=== PATIENT | male | born 1960 | race Caucasian/White ===

== ENCOUNTER 2021-10-13 19:29 | Emergency (ER) | payer MEDICAID, SELFPAY ==
[2021-10-13 19:30] VITALS: BP 114/78; PULSE 71; RESP 16; O2SAT 94
[2021-10-13 19:32] VITALS: BP 121/85; PULSE 82; RESP 25; TEMP 36.8; O2SAT 94; BMI 24.5
--- NOTE | 2021-10-13 19:45 | CT_ITS ---
STUDY: CT BRAIN WITHOUT CONTRAST REASON FOR EXAM: Male, 61 years old. Technologist Notes Other, FOUND WALKING DOWN MIDDLE OF THE ROAD,ETOH AMS TECHNIQUE: Transaxial CT imaging of the brain was performed without administration of intravenous contrast material. Individualized dose optimization techniques were used for this CT. COMPARISON: None FINDINGS: Normal calvarium. Normal soft tissues. Normal size ventricles and extra-axial spaces for the patient''s age. Normal white matter tracts of the cerebral hemispheres. Normal basal ganglia and thalami. Normal brainstem. Normal cerebellum. There is no intracranial hemorrhage. There are no findings of an acute ischemic infarction. Normal visualized paranasal sinuses. ASPECTS 10 CT/Brain/Head without Contrast IMPRESSION: There are no acute intracranial findings. Electronically Signed: Ruben Puga MD at 20:46 EST , Service support ,
--- NOTE | 2021-10-13 19:45 | EKG12_ITS ---
Test Reason : DYSRHYTHMIA Blood Pressure : / mmHG Vent. Rate : 074 BPM Atrial Rate : 074 BPM P-R Int : 156 ms QRS Dur : 090 ms QT Int : 420 ms P-R-T Axes : 074 067 054 degrees QTc Int : 466 ms Normal sinus rhythm Normal ECG Confirmed by BRIE WALKER, CLEM ([id number]), slot editor KATIE ANDRES ([id number]) on 10/19/2021 12:05:05 PM Referred By: PL Confirmed By:CLEM BAIRD MD
[2021-10-13 20:24] LABS: Absolute Lymphocyte Count 1.34 X10^3/uL (0.83-4.51); Absolute Neutrophil Count 5.8 X10^3/uL (2.0-7.7); Basophil# 0.03 X10^3/uL; Basophil% 0.4 % (0-1); Eosinophil# 0.05 X10^3/uL; Eosinophils% 0.6 % (0-5); Hemoglobin 14.9 g/dL (13.0-16.5); Lymphocyte # 1.34 X10^3/ul (0.83-4.51); Lymphocyte % 17.2 % (19-41); Mean Corp Hgb Conc 33.1 g/dL (32-36); Mean Corpuscular Hgb 29.8 pg (27.0-32.0); Mean Platelet Vol. 9.1 fl (6.2-12.0); Monocyte# 0.53 X10^3/uL; Monocyte% 6.8 % (0-10); NRBC Flagged by Analyzer 0 % (0-5); Neutrophil # 5.83 X10^3/uL (2.7-7.7); Neutrophil % 74.9 % (47-70); Platelet Count 209 K/mm3 (150-450); RBC Distribution Width CV 12.4 % (11.6-14.6); RBC Distribution Width SD 41.1 fl (35.1-43.9); White Blood Count 7.8 K/mm3 (4.4-11.0)
--- NOTE | 2021-10-13 20:28 | RAD_ITS ---
STUDY: X-RAY CHEST REASON FOR EXAM: Male, 61 years old. Technologist Notes FOUND WALKING DOWN THE MIDDLE OF THE ROAD. ETOH. PAIN AMS TECHNIQUE: XR Chest 1 View COMPARISON: None FINDINGS: 3 mm right midlung nodule. Normal size heart. Normal mediastinum and marylou. Normal visualized pulmonary arteries. There is atherosclerotic calcification of the aortic arch with tortuosity. There are diffuse degenerative changes of the visualized thoracic spine. There is degenerative osteoarthritis of the bilateral shoulders. There is no demonstrated abnormality of the visualized soft tissue structures of the upper abdomen. RAD/Chest 1 View (Portable) IMPRESSION: There is a right midlung nodule. Correlation with prior imaging would be helpful if available. Otherwise, please obtain chest CT follow-up. Electronically Signed: Ruben Puga MD at 21:06 EST , Service support ,
[2021-10-13 20:30] VITALS: BP 110/72; PULSE 87; RESP 19; O2SAT 94
--- NOTE | 2021-10-13 20:31 | EDS_ITS ---
HPI History of Present Illness Chief Complaint: ETOH Intox Narrative Narrative: 61-year-old male from [place] apparently left without being noticed. He was found walking down the street intoxicated. The police brought him in for evaluation. When asked how much the patient drank he states a little bit. He is not able to give much more history. PFSH PFS Medical History unable to obtain Allergy/AdvReac Type Severity Reaction Status Date / Time No Known Allergies Allergy Verified 10/13/21 20:30 Social History Smoking Status: Smoker, status unknown ROS ROS ED Review of Systems ROS Unobtainable: due to mental status EXAM Physical Exam Narrative Exam Narrative: Appears intoxicated Const Vital Signs: 10/13/21 19:30 10/13/21 19:32 10/13/21 20:30 Temperature 98.3 F Temperature Source Temporal Pulse Rate 71 82 87 Respiratory Rate 16 25 H 19 H Blood Pressure 114/78 121/85 H 110/72 Blood Pressure Mean 90 97 84 Blood Pressure Source Monitor Pulse Ox 94 94 94 Oxygen Delivery Method Room Air Room Air Room Air 10/13/21 22:00 Temperature Temperature Source Pulse Rate 88 Respiratory Rate 16 Blood Pressure 112/75 Blood Pressure Mean 87 Blood Pressure Source Pulse Ox 97 Oxygen Delivery Method Room Air Positive well nourished and unkempt General Appearance ED: unkempt and NAD HEENT Reports moist mucous membranes atraumatic Eyes PERRL and EOMs intact bilaterally General Eye ED: Negative for pale conjunctiva or scleral icterus Neck supple Chest Wall inspection of chest normal Resp normal respiratory effort and clear to auscultation bilaterally Cardio regular rate and regular rhythm Back/Spine no CVA tenderness Neuro CN's II-XII intact bilaterally Sensorium / Orientation: alert Psych Appearance: unkempt Skin Lesions: no lesions Rashes: no rashes MDM MDM MDM Narrative Medical decision making narrative: Patient reportedly from [place] and was able to leave without being noticed. He appears intoxicated. he states he initially was from [place] but does not give a full story. He states that he was sent to [place] from there. He cannot tell me why. Patient was discussed with [place] who stated that he had been worsening like this for a week and they did not want to take him back. I obtained an EKG and blood work. EKG is sinus rhythm at a ventricular rate of 74 bpm without sign of ischemic change on my interpretation. CBC shows no leukocytosis and his hemoglobin Hockert are stable. Renal function electrolytes are normal. LFTs are not elevated. Urine drug screen is negative. Chest x-ray my interpretation shows no acute cardiopu lmonary process and radiologist does agree. CT brain interpreted by radiologist does not show any acute intercranial pathology. I did review the medical record it does appear that he was at [facility] before being transferred to [place]. It is noted in his medical record that he will walk out of the unlocked facilities. He does have a medical power of assistant city attorney. We will have social work see the patient and talk to his power of assistant city attorney to determine the best course of action. Impression: 1. EtOH intoxication Lab Data Attestation: I reviewed the patient's lab results. Labs: Laboratory Results - last 24 hr 10/13/21 10/13/21 10/13/21 20:15 20:15 20:15 WBC 7.8 RBC 5.00 Hgb 14.9 Hct 45.0 MCV 90.0 MCH 29.8 MCHC 33.1 RDW Std Deviation 41.1 RDW Coeff of Anirudh 12.4 Plt Count 209 MPV 9.1 Immature Gran % (Auto) 0.100 Neut % (Auto) 74.9 H Lymph % (Auto) 17.2 L [place] % (Auto) 6.8 Eos % (Auto) 0.6 Baso % (Auto) 0.4 Absolute Neuts (auto) 5.8 Absolute Lymphs (auto) 1.34 Nucleated RBC % 0 Sodium 141 Potassium 3.5 Chloride 107 Carbon Dioxide 24.0 Anion Gap 10 BUN 6 L Creatinine 0.78 Estim Creat Clear Calc 95.34 Est GFR (MDRD) Af Amer 131 Est GFR (MDRD) Non-Af 109 BUN/Creatinine Ratio 7.7 L Glucose 90 Calcium 8.4 L Total Bilirubin 0.20 Direct Bilirubin < 0.05 AST 17 ALT 19 Alkaline Phosphatase 95 Troponin I High Sens 5 Total Protein 6.7 Albumin 3.4 Globulin 3.3 Albumin/Globulin Ratio 1.0 Urine Color Urine Clarity Urine pH Ur Specific [place] Urine Protein Urine Glucose (UA) Urine Ketones Urine Occult Blood Urine Nitrite Urine Bilirubin Urine Urobilinogen Ur Leukocyte Esterase Urine RBC Urine WBC Ur Squamous Epith Cells Urine Bacteria Urine Mucus Urine Opiates Screen Urine Methadone Screen Ur Barbiturates Screen Ur Phencyclidine Scrn Ur Amphetamines Screen U Methamphetamin-MDMA U Benzodiazepines Scrn Urine Cocaine Screen U Cannabinoids Screen Ur Drug Screen Comment Ethyl Alcohol Cancelled 10/13/21 10/13/21 10/13/21 21:00 21:00 21:10 WBC RBC Hgb Hct MCV MCH MCHC RDW Std Deviation RDW Coeff of Anirudh Plt Count MPV Immature Gran % (Auto) Neut % (Auto) Lymph % (Auto) [place] % (Auto) Eos % (Auto) Baso % (Auto) Absolute Neuts (auto) Absolute Lymphs (auto) Nucleated RBC % Sodium Potassium Chloride Carbon Dioxide Anion Gap BUN Creatinine Estim Creat Clear Calc Est GFR (MDRD) Af Amer Est GFR (MDRD) Non-Af BUN/Creatinine Ratio Glucose Calcium Total Bilirubin Direct Bilirubin AST ALT Alkaline Phosphatase Troponin I High Sens Total Protein Albumin Globulin Albumin/Globulin Ratio Urine Color Straw Urine Clarity Clear Urine pH 6.0 Ur Specific [place] 1.010 Urine Protein Negative Urine Glucose (UA) Normal Urine Ketones Negative Urine Occult Blood Negative Urine Nitrite Negative Urine Bilirubin Negative Urine Urobilinogen Normal Ur Leukocyte Esterase Negative Urine RBC 0 SEEN Urine WBC 0 SEEN Ur Squamous Epith Cells 0 SEEN Urine Bacteria 0 SEEN Urine Mucus 0 SEEN Urine Opiates Screen NEGATIVE Urine Methadone Screen NEGATIVE Ur Barbiturates Screen NEGATIVE Ur Phencyclidine Scrn NEGATIVE Ur Amphetamines Screen NEGATIVE U Methamphetamin-MDMA NEGATIVE U Benzodiazepines Scrn NEGATIVE Urine Cocaine Screen NEGATIVE U Cannabinoids Screen NEGATIVE Ur Drug Screen Comment Ethyl Alcohol Cancelled 10/13/21 22:27 WBC RBC Hgb Hct MCV MCH MCHC RDW Std Deviation RDW Coeff of Anirudh Plt Count MPV Immature Gran % (Auto) Neut % (Auto) Lymph % (Auto) [place] % (Auto) Eos % (Auto) Baso % (Auto) Absolute Neuts (auto) Absolute Lymphs (auto) Nucleated RBC % Sodium Potassium Chloride Carbon Dioxide Anion Gap BUN Creatinine Estim Creat Clear Calc Est GFR (MDRD) Af Amer Est GFR (MDRD) Non-Af BUN/Creatinine Ratio Glucose Calcium Total Bilirubin Direct Bilirubin AST ALT Alkaline Phosphatase Troponin I High Sens Total Protein Albumin Globulin Albumin/Globulin Ratio Urine Color Urine Clarity Urine pH Ur Specific [place] Urine Protein Urine Glucose (UA) Urine Ketones Urine Occult Blood Urine Nitrite Urine Bilirubin Urine Urobilinogen Ur Leukocyte Esterase Urine RBC Urine WBC Ur Squamous Epith Cells Urine Bacteria Urine Mucus Urine Opiates Screen Urine Methadone Screen Ur Barbiturates Screen Ur Phencyclidine Scrn Ur Amphetamines Screen U Methamphetamin-MDMA U Benzodiazepines Scrn Urine Cocaine Screen U Cannabinoids Screen Ur Drug Screen Comment Ethyl Alcohol 157.0 Radiography Diagnostic Testing: Clinical Impression(s) from Imaging Studies Brain CT 10/13/21 19:45 IMPRESSION: There are no acute intracranial findings. Electronically Signed: Ruben Puga MD at 20:46 EST , Service support , Chest X-Ray 10/13/21 20:28 IMPRESSION: There is a right midlung nodule. Correlation with prior imaging would be helpful if available. Otherwise, please obtain chest CT follow-up. Electronically Signed: Ruben Puga MD at 21:06 EST , Service support , Discharge Plan Triage Chief Complaint: ETOH Intox ED Provider: Nathaniel Coleman Dx/Rx/DC Orders Primary Care Provider: Care Physician,No Primary
[2021-10-13 20:50] LABS: AST(SGOT) 17 U/L (15-37); Alanine Aminotransfer ALT/SGPT 19 U/L (16-61); Albumin, Serum 3.4 g/dL (3.2-5.0); Alkaline Phosphatase 95 U/L (45-117); Anion Gap 10 (5-15); BUN 6 mg/dL (7-18); BUN/Creat Ratio 7.7 RATIO (10-20); Bilirubin, Direct < 0.05 mg/dL (0.00-0.30); Calcium,Total 8.4 mg/dL (8.5-10.1); Chloride 107 mmol/L (98-107); Creatinine, Serum 0.78 mg/dL (0.70-1.30); EST Glomerular Filtration Rate 109 mL/min (>60); Est Glom Filt Rate - Afr Amer 131 mL/min (>60); Estimated Creatinine Clearance 95.34 ml/min; Globulin 3.3 g/dL (2.2-4.2); Glucose 90 mg/dL (74-106); Potassium 3.5 mmol/L (3.5-5.1); Protein, Total 6.7 g/dL (6.4-8.2); Sodium Level 141 mmol/L (136-145); Troponin-I HS 5 pg/mL (3.0-78.0)
[2021-10-13 21:07] LABS: Bacteria 0 SEEN /hpf (None Seen); Mucous, Urine 0 SEEN /hpf (<or=2+); Red Blood Cells-Urine 0 SEEN /hpf (0-5); Squamous Epithelial Cells - UA 0 SEEN /hpf (0-5); White Blood Cells 0 SEEN /hpf (0-5)
[2021-10-13 21:28] LABS: Color, Urine Straw (Yellow); Glucose, Dipstick Normal (Normal); Ketone-Dipstick Negative (Negative); Leukocyte Esterase-Dipstick Negative /ul (Negative); Nitrite-Dipstick Negative (Negative); Occult Blood-Urine Negative /ul (Negative); Protein-Dipstick Negative (Negative); Urine Bilirubin Dipstick Negative (Negative); Urine Clarity Clear (Clear); Urine Urobilinogen Normal (Normal)
[2021-10-13 21:43] LABS: Amphetamine Urine VISTA NEGATIVE (<1000 ng/mL); Barbiturate Urine VISTA NEGATIVE (< 200 ng/mL); Benzodiazepine Urine VISTA NEGATIVE (< 200 ng/mL); Cocaine Urine VISTA NEGATIVE (< 300 ng/mL); Ecstacy Urine VISTA NEGATIVE (< 500 ng/mL); Methadone Urine VISTA NEGATIVE (< 300 ng/mL); PCP Urine VISTA NEGATIVE (< 25 ng/mL); THC Urine VISTA NEGATIVE (< 50 ng/mL); Vista UDS pH Range 5
[2021-10-13 22:00] VITALS: BP 112/75; PULSE 88; RESP 16; O2SAT 97
[2021-10-14 03:40] VITALS: RESP 16
[2021-10-14 04:42] VITALS: BP 136/92; PULSE 94; RESP 17; O2SAT 94
[2021-10-14 05:14] VITALS: BP 136/57; PULSE 82; RESP 16; O2SAT 93
[2021-10-14 06:05] VITALS: BP 125/66; PULSE 76; RESP 18; O2SAT 96
--- NOTE | 2021-10-14 07:10 | ED.RN ---
pt appears to be asleep,resp even.
[2021-10-14 07:12] VITALS: BP 143/78; PULSE 76; RESP 16; O2SAT 96
[2021-10-14 07:31] VITALS: BP 143/86; PULSE 88; RESP 17; O2SAT 97
== END 2021-10-14 07:32 | disposition home or self-care (01) ==
PROVIDERS: Emergency Provider Student in an Organized Health Care Education/Training Program
DX: F10.129 Alcohol abuse with intoxication, unspecified (principal); Y90.6 Blood alcohol level of 120-199 mg/100 ml
CPT/HCPCS: 70450; 71045; 80053; 80076; 80307; 81001; 82077; 84484; 85025; 93005; 99285; A4216

== ENCOUNTER 2021-10-14 23:08 | Emergency (ER) | payer MEDICAID, SELFPAY ==
[2021-10-14 23:09] VITALS: BP 102/66; PULSE 69; RESP 18; TEMP 36.5; O2SAT 95; BMI 29.5
--- NOTE | 2021-10-14 23:29 | CT_ITS ---
STUDY: CT BRAIN WITHOUT CONTRAST REASON FOR EXAM: Male, 61 years old. Pain after fall RADIATION DOSAGE (If Supplied By Facility): CTDIvol = ( 44.99 ) mGy, DLP = ( 815.79 ) mGycm TECHNIQUE: Transaxial CT imaging of the brain was performed without administration of intravenous contrast material. Individualized dose optimization techniques were used for this CT. COMPARISON: 10/13/2021 FINDINGS: There is no intra-/extra-axial fluid collection, mass effect, or midline shift. The martínez/white matter junction is preserved. Hypoattenuation of periventricular and subcortical white matter suggestive of chronic small vessel ischemic disease. Mild diffuse parenchymal volume loss is noted. There is vascular calcification. The basal cisterns are patent. Visualized paranasal sinuses and mastoid air cells are clear. The calvarium is intact. CT/Brain/Head without Contrast IMPRESSION: No acute intracranial finding. . Electronically Signed: Jose Galaviz MD at 0:21 EST Tel , Service support ,
--- NOTE | 2021-10-14 23:31 | EDS_ITS ---
HPI History of Present Illness Chief Complaint: ETOH Intox Informant: patient and EMS Narrative Narrative: Patient brought in by EMS after being found laying in the road with apparent alcohol intoxication. Patient was in the emergency room last night for similar. He is currently residing at [facility]. They reportedly did not know that he had wandered away and got drunk. He was found laying in the road. He was observed overnight and discharged back to [facility] this morning. I am advised that he fell out of his bed earlier today and EMS was called. He was not transported that time. Patient was found again tonight laying in the road. PFSH PFS Medical History ETOH abuse Allergy/AdvReac Type Severity Reaction Status Date / Time No Known Allergies Allergy Verified 10/13/21 20:30 Social History Smoking Status: Smoker, status unknown ROS ROS ED Review of Systems ROS Unobtainable: due to mental condition EXAM Physical Exam Const Vital Signs: 10/14/21 23:09 10/15/21 02:11 10/15/21 04:00 Temperature 97.7 F L Temperature Source Oral Pulse Rate 69 62 65 Respiratory Rate 18 16 Blood Pressure 102/66 84/62 L 91/64 Blood Pressure Mean 78 69 73 Pulse Ox 95 95 97 Oxygen Delivery Method Room Air Room Air Room Air 10/15/21 06:00 Temperature Temperature Source Pulse Rate 67 Respiratory Rate 14 Blood Pressure 93/64 Blood Pressure Mean 73 Pulse Ox 97 Oxygen Delivery Method Room Air Positive well nourished and well developed General Appearance ED: well developed HEENT Reports moist mucous membranes Negative for trauma Eyes PERRL Neck supple Neck Narrative: No C-spine tenderness. Chest Wall inspection of chest normal and palpation of chest normal Resp normal respiratory effort and clear to auscultation bilaterally Cardio regular rate and regular rhythm GI non-tender Palpation: soft Extremity normal to inspection Neuro Neuro Narrative: Patient will moan to questions and rollover going back to sleep. He moves all 4 extremities. Skin no rashes or lesions noted MDM MDM MDM Narrative Medical decision making narrative: Patient not providing any history on arrival. Head CT and chest x-ray obtained. Lab work ordered. Lab Data Attestation: I reviewed the patient's lab results. Labs: Laboratory Results - last 24 hr 10/14/21 10/14/21 10/14/21 23:44 23:44 23:44 WBC 4.5 RBC 4.78 Hgb 14.3 Hct 43.0 MCV 90.0 MCH 29.9 MCHC 33.3 RDW Std Deviation 41.0 RDW Coeff of Anirudh 12.3 Plt Count 201 MPV 9.0 Immature Gran % (Auto) 0.200 Neut % (Auto) 50.7 Lymph % (Auto) 36.9 [place] % (Auto) 10.7 H Eos % (Auto) 1.3 Baso % (Auto) 0.2 Absolute Neuts (auto) 2.3 Absolute Lymphs (auto) 1.66 Nucleated RBC % 0 Sodium 142 Potassium 2.9 L Chloride 106 Carbon Dioxide 27.0 Anion Gap 9 BUN 8 Creatinine 0.77 Estim Creat Clear Calc 96.57 Est GFR (MDRD) Af Amer 134 Est GFR (MDRD) Non-Af 110 BUN/Creatinine Ratio 10.4 Glucose 95 Calcium 8.1 L Total Bilirubin 0.20 Direct Bilirubin 0.07 AST 17 ALT 17 Alkaline Phosphatase 90 Total Protein 6.5 Albumin 3.2 Globulin 3.3 Ethyl Alcohol 231.0 Radiography Chest X-Ray - ED: 1 View, Read by ED Physician and Chronic Changes Diagnostic Testing: Clinical Impression(s) from Imaging Studies Brain CT 10/14/21 23:29 IMPRESSION: No acute intracranial finding. . Electronically Signed: Jose Galaviz MD at 0:21 EST Tel , Service support , Chest X-Ray 10/14/21 23:59 IMPRESSION: No radiographic evidence of acute cardiopulmonary disease. at 0029 Reported and signed by: Nicolás Haywood MD Electronically Signed: Nicolás Haywood MD at 0:28 EST Tel , Service support , Treatment and Re-Evaluation Comments:: Portable chest x-ray per my interpretation reveals no acute changes. Radiology interpretation reviewed. Head CT unremarkable. Blood work remarkable for an alcohol level of 231 and potassium of 2.9. Patient has been observed for 7 hours at this time and alcohol level should be down to 100. Patient be signed out to oncoming physician. Morning nursing staff will be calling [facility] to try to ensure patient has appropriate supervision there. 2 days in a row now he has been found on the side of the road after leaving their facility. I anticipate he will be discharged back there unless they are able to make other housing arrangements for him. Discharge Plan Triage Chief Complaint: ETOH Intox ED Provider: Marylu Cotton Dx/Rx/DC Orders Clinical Impression: Alcohol intoxication Instructions: ED Alcohol Intoxication Primary Care Provider: Care Physician,No Primary Referrals: Care Physician,No Primary [Primary Care Provider] - [facility] [STAFF PHYSICIAN] - As soon as possible Disposition Disposition: Home, Self Care
[2021-10-14 23:56] LABS: Absolute Lymphocyte Count 1.66 X10^3/uL (0.83-4.51); Absolute Neutrophil Count 2.3 X10^3/uL (2.0-7.7); Basophil# 0.01 X10^3/uL; Basophil% 0.2 % (0-1); Eosinophil# 0.06 X10^3/uL; Eosinophils% 1.3 % (0-5); Hemoglobin 14.3 g/dL (13.0-16.5); Lymphocyte # 1.66 X10^3/ul (0.83-4.51); Lymphocyte % 36.9 % (19-41); Mean Corp Hgb Conc 33.3 g/dL (32-36); Mean Corpuscular Hgb 29.9 pg (27.0-32.0); Monocyte# 0.48 X10^3/uL; Monocyte% 10.7 % (0-10); NRBC Flagged by Analyzer 0 % (0-5); Neutrophil # 2.28 X10^3/uL (2.7-7.7); Neutrophil % 50.7 % (47-70); Platelet Count 201 K/mm3 (150-450); RBC Distribution Width CV 12.3 % (11.6-14.6); Red Blood Count 4.78 M/mm3 (4.6-6.2); White Blood Count 4.5 K/mm3 (4.4-11.0)
--- NOTE | 2021-10-14 23:59 | RAD_ITS ---
HISTORY: fall, ETOH EXAMINATION/TECHNIQUE: XR Chest 1 View COMPARISON: AP chest x-ray from one day prior FINDINGS: LINES/DEVICES: playground monitor leads. LUNGS: No pulmonary edema. No focal airspace consolidation. Small benign granulomatous calcification right mid lung. No sizable pleural effusion. No pneumothorax detected. MEDIASTINUM AND CARDIOVASCULAR STRUCTURES: Heart size within normal limits for imaging technique. Central airways and mediastinal contour are unremarkable. BONES AND SOFT TISSUES: Mild scoliotic curvature of spine again noted. RAD/Chest 1 View (Portable) IMPRESSION: No radiographic evidence of acute cardiopulmonary disease. at 0029 Reported and signed by: Nicolás Haywood MD Electronically Signed: Nicolás Haywood MD at 0:28 EST Tel , Service support ,
[2021-10-15 00:09] LABS: AST(SGOT) 17 U/L (15-37); Alanine Aminotransfer ALT/SGPT 17 U/L (16-61); Albumin, Serum 3.2 g/dL (3.2-5.0); Alkaline Phosphatase 90 U/L (45-117); Anion Gap 9 (5-15); BUN 8 mg/dL (7-18); BUN/Creat Ratio 10.4 RATIO (10-20); Bilirubin, Direct 0.07 mg/dL (0.00-0.30); Calcium,Total 8.1 mg/dL (8.5-10.1); Chloride 106 mmol/L (98-107); Creatinine, Serum 0.77 mg/dL (0.70-1.30); EST Glomerular Filtration Rate 110 mL/min (>60); Est Glom Filt Rate - Afr Amer 134 mL/min (>60); Estimated Creatinine Clearance 96.57 ml/min; Globulin 3.3 g/dL (2.2-4.2); Glucose 95 mg/dL (74-106); Potassium 2.9 mmol/L (3.5-5.1); Protein, Total 6.5 g/dL (6.4-8.2); Sodium Level 142 mmol/L (136-145)
[2021-10-15 02:11] VITALS: BP 84/62; PULSE 62; O2SAT 95
[2021-10-15 04:00] VITALS: BP 91/64; PULSE 65; RESP 16; O2SAT 97
[2021-10-15 06:00] VITALS: BP 93/64; PULSE 67; RESP 14; O2SAT 97
[2021-10-15 08:56] VITALS: BP 113/80; PULSE 81; O2SAT 100
--- NOTE | 2021-10-15 09:04 | ED.RN ---
Spoke with Flores at [facility]. Per her the custodial had to file a missing persons report. PT left the custodial around 9pm last night. Pt has had [facility] called several times. Flores stated that pt bothers the neighbors leaving the facility and asking for food and money. Pt has been in several other group homes and has been discharged from them. Flores asked if we could call guardian Dexter Akhtar at [phone]. Dexter will be called
[2021-10-15 12:00] VITALS: BP 126/64; PULSE 78; RESP 14; O2SAT 96
--- NOTE | 2021-10-15 12:05 | ED.RN ---
Dexter the pts guardian called and is aware of pt being here and circumstances behind it. This nurse put in a social work consult for pt and Dexter stated that at this point they would like to get him into a long-term program to dry out
== END 2021-10-15 12:50 | disposition home or self-care (01) ==
PROVIDERS: Emergency Provider Emergency Medicine
DX: F10.129 Alcohol abuse with intoxication, unspecified (principal); F17.200 Nicotine dependence, unspecified, uncomplicated
CPT/HCPCS: 36415; 70450; 71045; 80048; 80076; 82077; 85025; 99285; A4216

== ENCOUNTER 2021-11-01 14:30 | Inpatient (IN) | payer MEDICAID, SELFPAY ==
[2021-11-01 14:33] VITALS: BP 145/116; PULSE 85; RESP 16; TEMP 36.3; O2SAT 98; BMI 22.7
--- NOTE | 2021-11-01 14:47 | EX.ED.SAOD ---
HPI History of Present Illness Chief Complaint: ETOH Intox Detail of Chief Complaint: Alcohol intoxication and request for detox Informant: patient Narrative Narrative: Patient presents to the emergency department with alcohol intoxication. Patient apparently was in a parking lot at a gas station attempting to urinate when police was called. Patient apparently was given the choice of detox or going to [facility]. Patient denies any falls or head injuries. Patient tells me that he thinks he drank 2 tall boys this morning and that that is about how much he drinks daily. He denies chest pain or abdominal pain. He denies illicit drug use. Patient denies any COVID symptoms. He has had the COVID-vaccine. Patient tells me he has no primary care physician and no other medical issues. Patient states he has not gone through detox before. PFSH PFSH Medical History ETOH abuse Allergy/AdvReac Type Severity Reaction Status Date / Time No Known Allergies Allergy Verified 10/13/21 20:30 Social History Smoking Status: Smoker, status unknown ROS ROS ED ROS Narrative Alcohol intoxication Constitutional Constitutional ED: Reports systems reviewed and no addt'l complaints, except as documented; Denies body ache(s), change in weight or chills Eyes Eyes: Denies acute decrease in peripheral vision, change in vision, double vision or loss of vision ENT ENT ED: Reports none; Denies ear pain, lip swelling, loss taste/smell, neck pain, otalgia or sore throat Cardiovascular Cardiovascular: Reports none; Denies abdominal pain, chest pain with activity, leg edema, lightheadedness, palpitations, rapid heart rate or syncope Respiratory/Chest Respiratory/Chest: Reports none; Denies change in mental status, dry cough, dyspnea, hemoptysis, shortness of breath at rest or shortness of breath with exertion Gastrointestinal Gastrointestinal: Reports none; Denies abdominal pain, change in stool character, diarrhea, hematemesis, hematochezia, melena, rectal bleeding or vomiting Genitourinary Genitourinary ED: Reports none; Denies abdominal discomfort, anuria, dysuria, genital pain or polyuria Musculoskeletal Musculoskeletal: Reports none; Denies arthralgias, back pain, difficulty walking, extremity pain, muscle weakness or myalgias Integumentary Reports none; Denies abscess or rash Neurologic Neurologic: Reports none; Denies abnormal gait, confusion, focal weakness, frequent falls, headache(s), loss of vision, numbness, paresthesias, radicular pain, vertigo or weakness Psychiatric Psychiatric: Reports systems reviewed and no addt'l complaints, except as documented and none; Denies behavioral changes, confusion, difficulty concentrating, hallucinations, suicidal ideation, tactile hallucinations or visual hallucinations Endocrine Endocrinology: Denies none, cold intolerance, excessive sweating, fatigue or heat intolerance Hematologic/Lymphatic Hematologic/Lymphatic: Reports none; Denies anemia, easy bleeding or easy bruising Allergic/Immunologic Allergic/Immunologic ED: Denies as per HPI, none, lip swelling, mouth swelling, throat swelling, tongue swelling or hives EXAM Physical Exam Const Vital Signs: 11/01/21 14:33 11/01/21 15:37 Temperature 97.4 F L 98 F Temperature Source Temporal Temporal Pulse Rate 85 81 Respiratory Rate 16 16 Blood Pressure 145/116 H 147/99 H Blood Pressure Mean 125 115 Blood Pressure Source Monitor Blood Pressure Position Sitting Blood Pressure Location Right Arm Pulse Ox 98 97 Oxygen Delivery Method Room Air Room Air Positive well nourished and well developed General Appearance ED: well developed and NAD HEENT Reports TM's clear and moist mucous membranes normocephalic and atraumatic; Negative for trauma or tenderness Tympanic Membrane ED: Yes TM's clear Eyes PERRL and EOMs intact bilaterally General Eye ED: Negative for pale conjunctiva or scleral icterus Neck no lymphadenopathy, supple and no JVD General: Negative for tenderness Chest Wall inspection of chest normal and palpation of chest normal Chest: Negative for tenderness Resp normal respiratory effort and clear to auscultation bilaterally Effort and Inspection: Negative for respiratory distress or pain with movement Auscultation: Negative for rhonchi, wheezes or diminished lung sounds Cardio regular rate, regular rhythm, S1 normal heart sound, S2 normal heart sound and no murmurs Peripheral Pulses: pulses 2+ throughout GI normal to inspection, nondistended, normoactive bowel sounds, soft to palpation, non-tender, non-distended and no masses Back/Spine no CVA tenderness and no thoracic nor lumbar tenderness Extremity normal to inspection General Extremety ED: Negative for edema General Extremity: Negative for edema Neuro oriented x3, CN's II-XII intact bilaterally, no sensory deficits noted and gait normal Sensorium / Orientation: awake, alert, oriented to person, oriented to place and oriented to time Motor Exam: strength 5/5 throughout and strength abnormal Psych mental status grossly normal Skin no rashes or lesions noted and no wounds MDM MDM MDM Narrative Medical decision making narrative: IV line established on arrival. Basic labs were unremarkable. Alcohol was 134. Case discussed with hospitalist will evaluate patient for admission for alcohol detox Lab Data Attestation: I reviewed the patient's lab results. Labs: Laboratory Results - last 24 hr 11/01/21 11/01/21 11/01/21 15:15 15:15 15:15 WBC 4.7 RBC 4.54 L Hgb 13.7 Hct 40.0 MCV 88.1 MCH 30.2 MCHC 34.3 RDW Std Deviation 40.4 RDW Coeff of Anirudh 12.5 Plt Count 241 MPV 8.9 Immature Gran % (Auto) 0.200 Neut % (Auto) 68.2 Lymph % (Auto) 22.0 [place] % (Auto) 9.0 Eos % (Auto) 0.4 Baso % (Auto) 0.2 Absolute Neuts (auto) 3.2 Absolute Lymphs (auto) 1.03 Nucleated RBC % 0 Sodium 141 Potassium 3.3 L Chloride 105 Carbon Dioxide 30.0 Anion Gap 6 BUN 8 Creatinine 0.66 L Estim Creat Clear Calc 112.11 Est GFR (MDRD) Af Amer 159 Est GFR (MDRD) Non-Af 131 BUN/Creatinine Ratio 12.1 Glucose 104 Calcium 8.3 L Total Bilirubin 0.10 L AST 21 ALT 28 Alkaline Phosphatase 73 Total Protein 6.5 Albumin 3.3 Globulin 3.2 Albumin/Globulin Ratio 1.0 Ur Drug Screen Comment Ethyl Alcohol 134.0 11/01/21 16:15 WBC RBC Hgb Hct MCV MCH MCHC RDW Std Deviation RDW Coeff of Anirudh Plt Count MPV Immature Gran % (Auto) Neut % (Auto) Lymph % (Auto) [place] % (Auto) Eos % (Auto) Baso % (Auto) Absolute Neuts (auto) Absolute Lymphs (auto) Nucleated RBC % Sodium Potassium Chloride Carbon Dioxide Anion Gap BUN Creatinine Estim Creat Clear Calc Est GFR (MDRD) Af Amer Est GFR (MDRD) Non-Af BUN/Creatinine Ratio Glucose Calcium Total Bilirubin AST ALT Alkaline Phosphatase Total Protein Albumin Globulin Albumin/Globulin Ratio Ur Drug Screen Comment Ethyl Alcohol Discharge Plan Triage Chief Complaint: ETOH Intox ED Provider: Marino Hernandez Dx/Rx/DC Orders Clinical Impression: Alcohol intoxication, Admitted to alcohol detoxification center Primary Care Provider: Care Physician,No Primary Referrals: Care Physician,No Primary [Primary Care Provider] - Disposition Disposition: Acute Care Hospital [facility]
[2021-11-01 15:22] LABS: Absolute Lymphocyte Count 1.03 X10^3/uL (0.83-4.51); Absolute Neutrophil Count 3.2 X10^3/uL (2.0-7.7); Basophil# 0.01 X10^3/uL; Basophil% 0.2 % (0-1); Eosinophil# 0.02 X10^3/uL; Eosinophils% 0.4 % (0-5); Hemoglobin 13.7 g/dL (13.0-16.5); Lymphocyte # 1.03 X10^3/ul (0.83-4.51); Mean Corp Hgb Conc 34.3 g/dL (32-36); Mean Corpuscular Hgb 30.2 pg (27.0-32.0); Mean Corpuscular Volume 88.1 fL (80-94); Mean Platelet Vol. 8.9 fl (6.2-12.0); Monocyte# 0.42 X10^3/uL; NRBC Flagged by Analyzer 0 % (0-5); Neutrophil # 3.19 X10^3/uL (2.7-7.7); Neutrophil % 68.2 % (47-70); Platelet Count 241 K/mm3 (150-450); RBC Distribution Width CV 12.5 % (11.6-14.6); RBC Distribution Width SD 40.4 fl (35.1-43.9); Red Blood Count 4.54 M/mm3 (4.6-6.2); White Blood Count 4.7 K/mm3 (4.4-11.0)
[2021-11-01 15:37] VITALS: BP 147/99; PULSE 81; RESP 16; TEMP 36.6; O2SAT 97
[2021-11-01 15:38] LABS: AST(SGOT) 21 U/L (15-37); Alanine Aminotransfer ALT/SGPT 28 U/L (16-61); Albumin, Serum 3.3 g/dL (3.2-5.0); Alkaline Phosphatase 73 U/L (45-117); Anion Gap 6 (5-15); BUN 8 mg/dL (7-18); BUN/Creat Ratio 12.1 RATIO (10-20); Calcium,Total 8.3 mg/dL (8.5-10.1); Chloride 105 mmol/L (98-107); Creatinine, Serum 0.66 mg/dL (0.70-1.30); EST Glomerular Filtration Rate 131 mL/min (>60); Est Glom Filt Rate - Afr Amer 159 mL/min (>60); Estimated Creatinine Clearance 112.11 ml/min; Globulin 3.2 g/dL (2.2-4.2); Glucose 104 mg/dL (74-106); Potassium 3.3 mmol/L (3.5-5.1); Protein, Total 6.5 g/dL (6.4-8.2); Sodium Level 141 mmol/L (136-145)
--- NOTE | 2021-11-01 16:40 | CM.ED ---
Social Work Consult: Substance Abuse Referral source: Self referral Met with patient in room. Introduced self and social service technician role. Patient agreeable to speak with this social service technician. This social service technician broached topic of substance abuse. Patient is seeking admission to [facility] program for medical management of withdrawal symptoms and reports substance of choice as alcohol. Patient reports to consume a couple beers a day. Patient denied mental health history or concern of triggers. Support provided. Medical team updated. Telephone call to Miguelina Jacobson. Miguelina updated on plan for patient to be admitted to [facility] program. Disposition: Admit to [facility] program. Milton SHAW, SAKINA
[2021-11-01 16:45] LABS: Amphetamine Urine VISTA NEGATIVE (<1000 ng/mL); Barbiturate Urine VISTA NEGATIVE (< 200 ng/mL); Benzodiazepine Urine VISTA NEGATIVE (< 200 ng/mL); Cocaine Urine VISTA NEGATIVE (< 300 ng/mL); Ecstacy Urine VISTA NEGATIVE (< 500 ng/mL); Methadone Urine VISTA NEGATIVE (< 300 ng/mL); PCP Urine VISTA NEGATIVE (< 25 ng/mL); THC Urine VISTA NEGATIVE (< 50 ng/mL); Vista UDS pH Range 6
--- NOTE | 2021-11-01 16:52 | NURSING ---
MED SURG SHERLY ALCOHOL INTOX, REQUEST FOR ALCOHOL DETOX
--- NOTE | 2021-11-01 17:33 | CM.ED ---
Social Work Notified by nursing that patient has now decided to discharge to the community and does not wish to admit for detox program, [facility]. This medical social worker meeting with patient in room. Patient states I want to return to [facility]. Per nursing staff, police confirm that patient is from [facility]. Telephone call to Jesus Leayh. Jesus reports that patient was emergently evicted on Oct.18 due to patient not being able to stay sober and causing issues. This medical social worker inquired if Jesus is currently aware of where patient has been living. Jesus is not sure and states I think he has just been in skilled nursing. Jesus does report that patient has a guardian, Dexter Akhtar ([phone]). Telephone call to Dexter Renteria updated on patient status and provides permission to treat patient. Dexter reports to be concerned about patient ability to care for self and to believe that patient is currently homeless. Dexter reports that patient has been in 4 group homes in the last few months and I just don't know what to do with him. Dexter would like for patient to admit for detox as we need to get him sober first. This medical social worker speaking with patient again and going over with patient that patient does not currently have housing. Patient having difficulty understanding as evidenced by continuing to states I just want to go to [facility]. Patient is intoxicated per chart. Nursing report that patient has been accepted for admission to medical unit. This medical social worker, HRO, and charge nurse speaking with patient further. Patient is now agreeable to stay for [facility] program. Telephone call to Dexter Renteria updated on above. Social Work to continue to follow. Milton SHAW, SAKINA
[2021-11-01 18:04] VITALS: BP 124/79; BP 147/99; PULSE 80; PULSE 89; RESP 14; RESP 20; TEMP 36.6; TEMP 36.7; O2SAT 97; O2SAT 98
--- NOTE | 2021-11-01 18:12 | HP.PCM.HOS_ITS ---
HPI - General General Date of Admission: 11/01/21 Chief Complaint: Patient wants alcohol detoxification/management for alcohol withdrawal HPI Narrative BRANDON CARTER, is a 61 M with history of chronic alcohol use and dependence came to ER for medical stabilization. Patient was found urinating in public place in parking spot near a gas station, therefore police was called. Patient was brought to ER by police as he did not want to go to long term. Patient has been drinking couple beers but I think more every single day. He drinks 12 ounces bottle of beer. He denies drinking hard liquor including vodka, whiskey or rum. Patient looks dehydrated. He denies fall or head injuries. He is asking for food in ER. Patient has a history of withdrawal in the past when he does not drink for 2 to 3 days but denies seizure or hallucination. He has mild shakings. PFSH Medical History ETOH abuse Allergy/AdvReac Type Severity Reaction Status Date / Time No Known Allergies Allergy Verified 10/13/21 20:30 Social History Smoking Status: Smoker, status unknown ROS ROS Narrative Complete 14 ROS unobtainable as patient is intoxicated with alcohol. Mild shaking. Review of Systems ROS Unobtainable: due to encephalopathy and due to mental condition Vital Signs Vital Signs Vital Signs: 11/01/21 14:33 11/01/21 15:37 11/01/21 18:04 Temperature 97.4 F L 98 F 98.1 F Temperature Source Temporal Temporal Temporal Pulse Rate 85 81 89 Respiratory Rate 16 16 20 H Blood Pressure 145/116 H 147/99 H 124/79 H Blood Pressure Mean 125 115 94 Blood Pressure Source Monitor Blood Pressure Position Sitting Blood Pressure Location Right Arm Pulse Ox 98 97 97 Oxygen Delivery Method Room Air Room Air Room Air Weight Weight: 145 lb Body Mass Index (BMI) 22.7 Physical Exam Narrative General: Awake, disoriented to time and place. Generalized shaking. Poor nutritional status, malnutrition HEENT: Atraumatic, PERRLA, EOMI, Normocephalic Oral: Oral mucosa dry. Tobacco in lower lips/labial sulcus. Multiple caries teeth. Neck: Supple, No JVD, Negative Carotid Bruits Lungs: Air entry diminished in bilateral lung bases. No crepitation/rhonchi Cardiovascular: Regular rate, Regular Rhythm, Normal S1, Normal S2, No murmurs Abdomen: Bowel Sounds Present, Soft, Non Tender, Non-Distended : No renal angle tenderness. No suprapubic tenderness. Extremities: No edema, Capillary Refill Less than 3 Seconds Skin: No rashes, No breakdown Musculoskeletal: No Tenderness to Palpation of Joints or Extremities Neurological: Cranial nerves II-XII grossly intact, DTR 2+/4 and Symmetrical, generalized tremors. Psych/Mental Status: Repetitive behavior,, echolalia, disoriented Results Lab / Micro Data Result Diagrams: 11/01/21 15:15 11/01/21 15:15 Labs: Laboratory Results - last 24 hr 11/01/21 15:15: WBC 4.7, RBC 4.54 L, Hgb 13.7, Hct 40.0, MCV 88.1, MCH 30.2, MCHC 34.3, RDW Std Deviation 40.4, RDW Coeff of Anirudh 12.5, Plt Count 241, MPV 8.9, Immature Gran % (Auto) 0.200, Neut % (Auto) 68.2, Lymph % (Auto) 22.0, [place] % (Auto) 9.0, Eos % (Auto) 0.4, Baso % (Auto) 0.2, Absolute Neuts (auto) 3.2, Absolute Lymphs (auto) 1.03, Nucleated RBC % 0 11/01/21 15:15: Sodium 141, Potassium 3.3 L, Chloride 105, Carbon Dioxide 30.0, Anion Gap 6, BUN 8, Creatinine 0.66 L, Estim Creat Clear Calc 112.11, Est GFR (MDRD) Af Amer 159, Est GFR (MDRD) Non-Af 131, BUN/Creatinine Ratio 12.1, Glucose 104, Calcium 8.3 L, Total Bilirubin 0.10 L, AST 21, ALT 28, Alkaline Phosphatase 73, Total Protein 6.5, Albumin 3.3, Globulin 3.2, Albumin/Globulin Ratio 1.0 11/01/21 15:15: Ethyl Alcohol 134.0 11/01/21 16:15: Urine Opiates Screen NEGATIVE, Urine Methadone Screen NEGATIVE, Ur Barbiturates Screen NEGATIVE, Ur Phencyclidine Scrn NEGATIVE, Ur Amphetamines Screen NEGATIVE, U Methamphetamin-MDMA NEGATIVE, U Benzodiazepines Scrn NEGATIVE, Urine Cocaine Screen NEGATIVE, U Cannabinoids Screen NEGATIVE, Ur Drug Screen Comment Assessment & Plan Assessment/Plan (1) Alcohol intoxication: (2) Alcohol withdrawal delirium: PLAN: 1. Acute alcohol withdrawal syndrome with history of chronic alcohol use and dependence, and tolerance: Patient alcohol level is 134. Patient is being admitted on MedSur floor. IV fluid Ringer lactate for dehydration. Started on phenobarbital based other adjunctive medications for withdrawal symptoms. CIWA monitoring. 2. Acute encephalopathy mostly due to alcohol intoxication, toxic encephalopathy: Treat the underlying disorder. Patient has a history of chronic alcohol use disorder: Patient denies right upper quadrant pain, hematemesis melena or GI bleed or other signs or symptoms of chronic liver disease. ALT AST normal. 3. Multiple dental caries: Advised follow-up with dentist as an outpatient. Listerine mouthwash. 4. Chronic chewing tobacco/tobacco dependence: Advised quitting alcohol. Nicotine patch. 5. Mild hypokalemia, potassium replacement ordered. Serum magnesium and phosphorus ordered. VTE prophylaxis: Low risk. Early ambulation encouraged. CODE STATUS: Full code unverified Charges/Coding Visit Charges Inpatient E&M: 32108 Init Hosp L3
--- NOTE | 2021-11-01 18:14 | PCS.PANDOC ---
PANDEMIC DOCUMENTATION INITIATED: Date: 05/30/2021 Time: 190
--- NOTE | 2021-11-01 18:20 | NURSING ---
pt reports that he does not know his home medications but gets them prescribed through [facility] in [place]
[2021-11-01 18:22] VITALS: BMI 25.8
[2021-11-01 18:30] VITALS: BP 137/85; PULSE 83; RESP 16; TEMP 36.4; O2SAT 98
[2021-11-01] MEDS: Lactated Ringers 1,000 ML 125 ML IV (18:39)
[2021-11-01] MEDS: Potassium Chloride Oral Tablet 20 MEQ 40 MEQ PO ×2 (18:41→23:31)
[2021-11-01] MEDS: Phenobarbital 32.4 MG Tablet 64.8 MG PO ×2 (18:41→23:32)
[2021-11-01] MEDS: Pantoprazole Sodium 40 MG Tablet PO (18:42)
--- NOTE | 2021-11-01 18:45 | NURSING ---
pt cannot remember if he has had covid vaccines or flu vaccine this year, states that he has gotten a couple of shots
[2021-11-01 19:55] LABS: Magnesium 2.4 mg/dL (1.6-2.6); Phosphorus 2.9 mg/dL (2.5-4.9)
[2021-11-01 21:00] LABS: International Normalized Ratio 0.9; Prothrombin Time (Protime)PT. 11.9 SECONDS (11.7-14.9)
[2021-11-01 22:45] VITALS: BP 144/84; PULSE 82; RESP 16; TEMP 36.9; O2SAT 99
[2021-11-01] MEDS: Ondansetron 8 MG Tablet PO (22:53)
[2021-11-01] MEDS: traZODone 100 MG Tablet PO (23:32)
[2021-11-02 02:47] VITALS: BP 124/77; PULSE 87; RESP 16; TEMP 36.9; O2SAT 97
[2021-11-02] MEDS: Phenobarbital 32.4 MG Tablet 64.8 MG PO ×6 (02:50→23:05)
[2021-11-02 06:41] VITALS: BP 113/66; PULSE 66; RESP 16; TEMP 36.6; O2SAT 98
--- NOTE | 2021-11-02 09:34 | PCM.PN.HOSP ---
Subjective Subjective No issues overnight, CIWA score of 2 Objective Data Objective Data Vital Signs: Vital Signs Temp Pulse Resp BP Pulse Ox 97.9 F 66 16 113/66 98 11/02/21 06:41 11/02/21 06:41 11/02/21 06:41 11/02/21 06:41 11/02/21 06:41 Oxygen Delivery Method Room Air Weight: 160 lb Body Mass Index (BMI) 25.8 Intake & Output: Intake and Output for Last 24 Hours 11/01/21 11/02/21 11/03/21 03:59 03:59 03:59 Intake Total 1200 / 1200 Balance 1200 / 1200 Lab / Micro Data Result Diagrams: 11/01/21 15:15 11/01/21 15:15 Labs: Laboratory Results - last 24 hr 11/01/21 15:15: WBC 4.7, RBC 4.54 L, Hgb 13.7, Hct 40.0, MCV 88.1, MCH 30.2, MCHC 34.3, RDW Std Deviation 40.4, RDW Coeff of Anirudh 12.5, Plt Count 241, MPV 8.9, Immature Gran % (Auto) 0.200, Neut % (Auto) 68.2, Lymph % (Auto) 22.0, [place] % (Auto) 9.0, Eos % (Auto) 0.4, Baso % (Auto) 0.2, Absolute Neuts (auto) 3.2, Absolute Lymphs (auto) 1.03, Nucleated RBC % 0 11/01/21 15:15: Sodium 141, Potassium 3.3 L, Chloride 105, Carbon Dioxide 30.0, Anion Gap 6, BUN 8, Creatinine 0.66 L, Estim Creat Clear Calc 112.11, Est GFR (MDRD) Af Amer 159, Est GFR (MDRD) Non-Af 131, BUN/Creatinine Ratio 12.1, Glucose 104, Calcium 8.3 L, Total Bilirubin 0.10 L, AST 21, ALT 28, Alkaline Phosphatase 73, Total Protein 6.5, Albumin 3.3, Globulin 3.2, Albumin/Globulin Ratio 1.0 11/01/21 15:15: Ethyl Alcohol 134.0 11/01/21 15:15: Phosphorus 2.9, Magnesium 2.4 11/01/21 16:15: Urine Opiates Screen NEGATIVE, Urine Methadone Screen NEGATIVE, Ur Barbiturates Screen NEGATIVE, Ur Phencyclidine Scrn NEGATIVE, Ur Amphetamines Screen NEGATIVE, U Methamphetamin-MDMA NEGATIVE, U Benzodiazepines Scrn NEGATIVE, Urine Cocaine Screen NEGATIVE, U Cannabinoids Screen NEGATIVE, Ur Drug Screen Comment 11/01/21 20:17: PT 11.9, INR 0.9 Physical Exam Const alert, oriented x3 and no apparent distress Constitutional Narrative: Resting comfortably General Appearance: cooperative HEENT normocephalic and moist oral mucous membranes Eyes PERRL, EOMs intact bilaterally and conjunctivae normal Neck supple and no JVD Resp normal respiratory effort, no retractions, no use of accessory muscles and clear to auscultation bilaterally Auscultation: Negative for crackles, rales, rhonchi or wheezes Cardio regular rate, regular rhythm, S1 normal heart sound, S2 normal heart sound and no murmurs GI soft to palpation, non-tender and non-distended; Negative for hepatosplenomegaly Extremity no clubbing, cyanosis or edema Skin no rashes or lesions noted Neuro no focal motor deficits and no sensory deficits noted Psych affect normal Appearance: appropriate Assessment & Plan Assessment/Plan (1) Alcohol intoxication: (2) Alcohol withdrawal delirium: PLAN: 1. Acute alcohol withdrawal/tobacco abuse ? Continue with the alcohol withdrawal protocol ? He was given IV fluids in the ER and had his potassium replaced ? Discussed cessation of tobacco products, continue nicotine patch ? Have him follow-up with 180 as an outpatient DVT: Ambulation Charges/Coding Visit Charges Inpatient E&M: 09603 Subs Hosp L2
[2021-11-02 10:46] VITALS: BP 111/65; PULSE 68; RESP 18; TEMP 36.7; O2SAT 97
[2021-11-02] MEDS: Folic Acid 1 MG Tablet PO (10:49)
[2021-11-02] MEDS: Pantoprazole Sodium 40 MG Tablet PO (10:49)
[2021-11-02] MEDS: Thiamine Hydrochloride 100 MG Tablet PO (10:49)
--- NOTE | 2021-11-02 11:56 | ADDICTION ---
This comic writer met with PT to conduct ASAM, MSE, AUDIT assessments. PT awake, however, disoriented to time and place. Spoke with pt's guardian, Divorce Attorney Dexter Grider, and he reports he needs a dx that will get him placed into a locked facility. He reports that in 6 months pt has been placed in 6 different group homes where he has left and has been found intoxicated in random locations. He reports that 'there is a good chance he won't stay for the full detox program but if he does, can you get him a neuro-consult? This worker discussed request with charge nurse and hospitalist to coordinate services. If there are more questions, guardians number is [phone]. At this time, no d/c plan established.
[2021-11-02 12:50] VITALS: BP 126/69; PULSE 80; RESP 18; TEMP 37.1; O2SAT 98
[2021-11-02] MEDS: hydrOXYzine PAM 25 MG Capsule 50 MG PO ×2 (12:54→20:13)
[2021-11-02 18:37] VITALS: BP 131/80; PULSE 80; RESP 16; TEMP 37; O2SAT 99
[2021-11-02 19:44] VITALS: BP 136/72; PULSE 84; RESP 16; TEMP 36.9; O2SAT 98
[2021-11-02] MEDS: traZODone 100 MG Tablet PO (20:13)
[2021-11-03] VITALS (7 sets, daily range): BP systolic 92–110; BP diastolic 54–71; PULSE 56–72; RESP 16–18; TEMP 36.4–37.1; O2SAT 94–100
[2021-11-03] MEDS: Phenobarbital 32.4 MG Tablet 64.8 MG PO ×6 (03:34→23:28)
[2021-11-03] MEDS: Folic Acid 1 MG Tablet PO (08:01)
[2021-11-03] MEDS: Enoxaparin 40 MG/0.4 ML Syringe SC (08:01)
[2021-11-03] MEDS: Thiamine Hydrochloride 100 MG Tablet PO (08:01)
[2021-11-03] MEDS: Pantoprazole Sodium 40 MG Tablet PO (08:01)
--- NOTE | 2021-11-03 13:01 | ADDICTION ---
Spoke with pt today about d/c planning.. He reports that he would like to go to a detention. This worker informed him that we can discuss planning with him and his guardian once he is finished with detoxification and his neuro consult has been completed.
--- NOTE | 2021-11-03 16:17 | PCM.PN.HOSP ---
Subjective Subjective No issues overnight, doing well. CIWA score of 3 Objective Data Objective Data Vital Signs: Vital Signs Temp Pulse Resp BP Pulse Ox 98.8 F 64 18 92/54 L 97 11/03/21 15:24 11/03/21 15:24 11/03/21 15:24 11/03/21 15:24 11/03/21 15:24 Oxygen Delivery Method Room Air Weight: 160 lb Body Mass Index (BMI) 25.8 Intake & Output: Intake and Output for Last 24 Hours 11/02/21 11/03/21 11/04/21 03:59 03:59 03:59 Intake Total 1200 / 1200 960 / 960 Balance 1200 / 1200 960 / 960 Lab / Micro Data Result Diagrams: 11/01/21 15:15 11/01/21 15:15 Physical Exam Narrative Const alert, oriented x3 and no apparent distress Constitutional Narrative: Resting comfortably General Appearance: cooperative HEENT normocephalic and moist oral mucous membranes Eyes PERRL, EOMs intact bilaterally and conjunctivae normal Neck supple and no JVD Resp normal respiratory effort, no retractions, no use of accessory muscles and clear to auscultation bilaterally Auscultation: Negative for crackles, rales, rhonchi or wheezes Cardio regular rate, regular rhythm, S1 normal heart sound, S2 normal heart sound and no murmurs GI soft to palpation, non-tender and non-distended; Negative for hepatosplenomegaly Extremity no clubbing, cyanosis or edema Skin no rashes or lesions noted Neuro no focal motor deficits and no sensory deficits noted Psych affect normal Appearance: appropriate Assessment & Plan Assessment/Plan (1) Alcohol intoxication: (2) Alcohol withdrawal delirium: PLAN: 1. Acute alcohol withdrawal/tobacco abuse ? Continue with the alcohol withdrawal protocol ? He was given IV fluids in the ER and had his potassium replaced ? Discussed cessation of tobacco products, continue nicotine patch ? Have him follow-up with 180 as an outpatient ? Given reports of his external behavior and just the odd behaviors that he will demonstrate in the group homes in the assisted living that he been in, will have [facility] neurology evaluate him in the morning for possible alcoholic dementia which would indicate a need for placement DVT: Ambulation Charges/Coding Visit Charges Inpatient E&M: 08120 Subs Hosp L2
[2021-11-04 04:00] VITALS: BP 95/64; PULSE 57; RESP 16; TEMP 36.6; O2SAT 98
[2021-11-04] MEDS: Phenobarbital 32.4 MG Tablet 64.8 MG PO ×2 (04:10→09:19)
--- NOTE | 2021-11-04 07:26 | TELEMED_ITS ---
[facility] has confirmed receipt of a request for visit. This document confirms receipt of the order initiating the consult. To find the results of the consultation, please view the patient's reports for the scanned Telemed Consult.
[2021-11-04 07:40] VITALS: BP 92/60; PULSE 58; RESP 18; TEMP 36.8; O2SAT 98
[2021-11-04] MEDS: Folic Acid 1 MG Tablet PO (07:42)
[2021-11-04] MEDS: Thiamine Hydrochloride 100 MG Tablet PO (07:42)
[2021-11-04 08:00] VITALS: BP 92/60; PULSE 58; RESP 18; TEMP 36.8; O2SAT 98
[2021-11-04] MEDS: Enoxaparin 40 MG/0.4 ML Syringe SC (09:19)
[2021-11-04] MEDS: Pantoprazole Sodium 40 MG Tablet PO (09:19)
--- NOTE | 2021-11-04 11:33 | NURSING ---
Did neuro consult this am via [facility]. Neurologist that came on to evaluate the pt said that he is not the right type of doctor that this pt needs to give him the diagnosis of alcohol induced dementia. He would need to see a neuro phsy doctor. He proceeded to evaluate the pt and said that he will put his consultation note in for the hospital doctor to read since he was unavailable at this time.
[2021-11-04 11:52] VITALS: BP 90/52; PULSE 60; RESP 18; TEMP 36.6; O2SAT 96
--- NOTE | 2021-11-04 11:52 | PCM.DC ---
Discharge Instructions Diet Discharge Diet: No restrictions Activity Discharge Activity: Return to Normal Activity Dressing / Incision Call your doctor if you observe: Fever of 101 or Higher, Shortness of breath, Dizziness, Fainting spells, Swelling in the ankles, Chest pain and Increased palpitations (irregular heartbeat) Follow Up Care Test Results: Test results from this visit will be discussed in further detail at your follow-up appointment, if applicable. Discharge Plan Admission Admit Date/Time: 11/01/21 18:12 Attending Provider: Moses Marquis Primary Care Provider: Care Physician,Fouzia Primary Discharge Orders/Prescriptions Referrals / Follow Up: Care Physician,No Primary [Primary Care Provider] - Disposition Disposition (needs filled in before D/C Order can be placed): Home, Self Care
--- NOTE | 2021-11-04 11:54 | DS.PCM_ITS ---
Providers Date of Admission: 11/01/21 Primary Care Physician: Something because maybe she takes that Edithgarcia Primary Care Phys Reason For Visit: ALCOHOL DETOX Diagnosis Discharge Diagnosis (1) Alcohol intoxication: Status: Acute Code(s): F10.929 - Alcohol use, unspecified with intoxication, unspecified (2) Alcohol withdrawal delirium: Status: Acute Code(s): F10.231 - Alcohol dependence with withdrawal delirium Hospital Course Operations None Procedures None Summary of Care Provided Minutes Spent on Discharge: 36 Hospital Course: Per HPI: BRANDON CARTER, is a 61 M with history of chronic alcohol use and dependence came to ER for medical stabilization. Patient was found urinating in public place in parking spot near a gas station, therefore police was called. Patient was brought to ER by police as he did not want to go to [facility]. Patient has been drinking couple beers but I think more every single day. He drinks 12 ounces bottle of beer. He denies drinking hard liquor including vodka, whiskey or rum. Patient looks dehydrated. He denies fall or head injuries. He is asking for food in ER. Patient has a history of withdrawal in the past when he does not drink for 2 to 3 days but denies seizure or hallucination. He has mild shakings. Hospital Course: 1. Acute alcohol withdrawal/tobacco abuse ? Continue with the alcohol withdrawal protocol ? He was given IV fluids in the ER and had his potassium replaced ? Discussed cessation of tobacco products, continue nicotine patch ? Have him follow-up with [facility] as an outpatient ? 11/04/2021: [facility] advised that they are unable to provide will be needed in terms of the dementia diagnosis, he has been fairly stable and his CIWA scores and has been less than for quite some time. Initially the guardian did not want him to go to a residential as he was afraid that the patient would just leave and had threatened not to pick them up however we were able to discuss with him that in order to get the diagnosis of alcoholic dementia he would need to go to a neuropsych physician which we do not have access to here. The patient will need to be taken to either [facility] or [facility] for this type of diagnosis and as his withdrawal symptoms have resolved he is stable for discharge and we will try to get him discharged to a residential treatment unit. Physical Exam Narrative Const alert, oriented x3 and no apparent distress Constitutional Narrative: Resting comfortably General Appearance: cooperative HEENT normocephalic and moist oral mucous membranes Eyes PERRL, EOMs intact bilaterally and conjunctivae normal Neck supple and no JVD Resp normal respiratory effort, no retractions, no use of accessory muscles and clear to auscultation bilaterally Auscultation: Negative for crackles, rales, rhonchi or wheezes Cardio regular rate, regular rhythm, S1 normal heart sound, S2 normal heart sound and no murmurs GI soft to palpation, non-tender and non-distended; Negative for hepatosplenomegaly Extremity no clubbing, cyanosis or edema Skin no rashes or lesions noted Neuro no focal motor deficits and no sensory deficits noted Psych affect normal Appearance: appropriate Weight / BMI Weight Weight: 160 lb Body Mass Index (BMI) 25.8 ABG / Lab / Microbiology Data Result Diagrams: 11/01/21 15:15 11/01/21 15:15 D/C Instructions Discharge Diet: No restrictions Call your doctor if you observe: Fever of 101 or Higher, Shortness of breath, Dizziness, Fainting spells, Swelling in the ankles, Chest pain and Increased palpitations (irregular heartbeat) Meaningful Use Info Meaningful Use Diagnoses (Choose all that apply): None applicable Discharge Plan Admission Admit Date/Time: 11/01/21 18:12 Attending Provider: Moses Marquis Primary Care Provider: Care Physician,No Primary Discharge Orders/Prescriptions Referrals / Follow Up: Care Physician,No Primary [Primary Care Provider] - Disposition Disposition (needs filled in before D/C Order can be placed): Home, Self Care Charges/Coding Visit Charges Inpatient E&M: 78101 Disch Hosp
--- NOTE | 2021-11-04 12:30 | ADDICTION ---
Patient agreed to residential treatment. He was approved to go to [facility] in [place]. They will pick him up today, 11/04/21 around 3:30pm.
[2021-11-04 14:49] VITALS: BP 108/69; PULSE 62; RESP 18; TEMP 36.2; O2SAT 97
== END 2021-11-04 15:30 | disposition home or self-care (01) | DRG 775 ==
LOC: ED 16:46 → MS3 19:12
PROVIDERS: Admitting Provider Internal Medicine; Emergency Provider Emergency Medicine; Visit Provider Family Medicine
DX: F10.231 Alcohol dependence with withdrawal delirium (principal); G92.9 Unspecified toxic encephalopathy; F10.229 Alcohol dependence with intoxication, unspecified; K02.9 Dental caries, unspecified; E86.0 Dehydration; F17.220 Nicotine dependence, chewing tobacco, uncomplicated; E87.6 Hypokalemia; T51.91XA Toxic effect of unspecified alcohol, accidental (unintentional), initial encounter; Y90.6 Blood alcohol level of 120-199 mg/100 ml
CPT/HCPCS: 36415; 80053; 80307; 82077; 83735; 84100; 85025; 85610; 99283; 99406; J7120